=== PATIENT | male | born 1985 | race African-American/Black ===

== ENCOUNTER 2016-07-20 13:22 | Inpatient (IN) | payer OTHER ==
[~2016-07-20] VITALS: Ht 160 cm; Wt 90.7 kg
[2016-07-20] MEDS ORDERED: DiphenhydrAMINE 50mg/ml Inj IVP ONE (13:30)
[2016-07-20] MEDS ORDERED: LORazepam Inj 2mg/ml 1ml IV ONE ×2 (13:30→16:00)
--- NOTE | 2016-07-20 13:34 | Emergency Room Report ---
History of Present Illness General Chief Complaint: Substance Abuse Source: EMS (Deshawn Ardon M.D.) Present Illness HPI Patient presents with twitching out of control. He told EMS that he is been doing methamphetamine for several days. He denies any other medical problems at this time. EMS checked a blood sugar that was 311 in the field. The patient is unable to give history as he is confused. (Deshawn Ardon M.D.) Allergies: Coded Allergies: UNABLE TO ASSESS (Unverified , 07/20/16) pt ams Patient History Limited by: medical condition Past Medical History: see triage record Social History: Reports: drug use - Methamphetamine Social History Narrative from home Reviewed Nursing Documentation: PMH: Agreed, PSxH: Agreed (Deshawn Ardon M.D.) Nursing Documentation-PM Past Medical History: No History, Except For History Of Psychiatric Problem: Yes - meth abuse (Deshawn Ardon M.D.) Review of Systems All Other Systems: limited (Deshawn Ardon M.D.) Physical Exam Vital Signs Date Time Temp Pulse Resp B/P Pulse Ox O2 Delivery O2 Flow Rate FiO2 07/20/16 13:22 82 18 184/142 98 Room Air Eyes: bilateral eye PERRL, bilateral eye Scleral Injection, bilateral eye other - exopthalmos ENT: moist mucus membranes Neck: supple, no meningismus Respiratory: lungs clear, normal breath sounds Cardiovascular #1: no edema, no murmur, tachycardia Cardiovascular #2: 2+ radial (L) Gastrointestinal: abnormal bowel sounds - decreased, scaphoid Musculoskeletal: digits/nails normal, normal range of motion Neurologic: alert - not answer orientation, motor strength/tone normal, other - possibly involuntary muscle movements - choreoform Psychiatric: other - confused Skin: normal inspection, normal color, no rash, warm/dry (Deshawn Ardon M.D.) Medical Decision Making Diagnostic Impression: Primary Impression: Substance abuse Additional Impressions: Hypotension Qualified Codes: I95.9 - Hypotension, unspecified Altered mental status Qualified Codes: R41.82 - Altered mental status, unspecified Pneumonia Qualified Codes: J18.9 - Pneumonia, unspecified organism Leukocytosis Qualified Codes: D72.829 - Elevated white blood cell count, unspecified Rhabdomyolysis Qualified Codes: M62.82 - Rhabdomyolysis ER Course The patient presents with uncontrolled motor movements after several days of use of amphetamine (Crystal). Broad differential. The fact his blood sugar was 311 the field is disconcerting. This will be repeated here. IV will be started and hydration. Patient will be given Ativan and Benadryl. The patient is complex and confused. Non-focal neurologic exam. Accu-Chek here was 85. Labs pending. Somewhat improved after ativan and benadryl. Patient signed out to Dr. Renee. (Deshawn Ardon M.D.) ER Course Endorsed by Dr Ardon at 3pm to followup evaluation and managment of patient with suspected meth overdose. Patient still agitated. Required increasing doses of ativan for sedation and IVF NS hydration for hypotension 31 YO M with AMS, + for meth abuse on Utox with uncontrolled extremity movements and hypotension. Labs: Mild lueks and elevated CK. No DALE CXR: ?right middle lobe infiltrate Given IVF NS, IV Levo Dx: Meth overdose, Rhabdo, PNA, hypotension Admitted to Tele to Dr Lehman at 514pm (SIDDHARTHA RENEE M.D.) EKG Diagnostic Results Rate: normal Rhythm: NSR ST Segments: no acute changes (Deshawn Ardon M.D.) Rate: normal Rhythm: NSR ST Segments: no acute changes (SIDDHARTHA RENEE M.D.) Rhythm Strip Diag. Results EP Interpretation: yes Rhythm: NSR, no PVC's, no ectopy (Deshawn Ardon M.D.) EP Interpretation: yes Rate: 101 Rhythm: NSR, no PVC's, no ectopy (SIDDHARTHA RENEE M.D.) Chest X-Ray Diagnostic Results EP Interpretation: Yes Findings: no effusion, no pneumothorax, no acute cardiopulmonary disease, other - Right middle lobe infilitate Number of Views: 1 (SIDDHARTHA RENEE M.D.) Status: improved (Deshawn Ardon M.D.) Status: improved (SIDDHARTHA RENEE M.D.) Disposition: ADMITTED INPATIENT Condition: Serious Deshawn Ardon M.D. Jul 20, 2016 13:34 SIDDHARTHA RENEE M.D. Jul 20, 2016 15:52
[2016-07-20 14:05] VITALS: BP 167/90
[2016-07-20 14:22] LABS: BASOPHILS % (AUTO) 2.6 % (0.0-2.0); EOSINOPHILS % (AUTO) 0.1 % (0.0-3.0); LYMPHOCYTES % (AUTO) 25.4 % (20.0-45.0); MEAN CORPUSCULAR HEMOGLOBIN 30.1 PG (27.0-31.0); MEAN CORPUSCULAR HGB CONC 33.4 G/DL (32.0-36.0); MEAN CORPUSCULAR VOLUME 90 FL (80-99); MONOCYTES % (AUTO) 13.6 % (1.0-10.0); NEUTROPHILS % (AUTO) 58.3 % (45.0-75.0); PLATELET COUNT 235 K/UL (150-450); RED BLOOD COUNT 5.59 M/UL (4.70-6.10); RED CELL DISTRIBUTION WIDTH 11.7 % (11.6-14.8); WHITE BLOOD COUNT 12.2 K/UL (4.8-10.8)
[2016-07-20 14:34] LABS: ACETAMINOPHEN < 10 ug/mL (10-30); ALANINE AMINOTRANSFERASE 15 U/L (3-41); ALBUMIN/GLOBULIN RATIO 1.4 (1.0-2.7); ALCOHOL < 10 mg/dL; ANION GAP 20 (5-15); ASPARTATE AMINO TRANSFERASE 26 U/L (5-40); CALCIUM 9.4 mg/dL (8.6-10.2); CARBON DIOXIDE 23 mEQ/L (20-30); CHLORIDE 95 mEQ/L (98-107); GLOMERULAR FILTRATION RATE > 60 mL/min (>60); HEMOLYSIS 15; POTASSIUM 3.2 mEQ/L (3.4-4.9); SODIUM 138 mEQ/L (135-145); TOTAL PROTEIN 7.7 g/dL (6.6-8.7)
[2016-07-20 14:47] LABS: BILIRUBIN,DIRECT 0.2 mg/dL (0.1-0.3)
[2016-07-20 15:10] LABS: APPEARANCE,URINE CLEAR; KETONES,URINE 4+ (NEGATIVE); LEUKOCYTE ESTERASE ,URINE 2+ (NEGATIVE); NITRITE,URINE NEGATIVE (NEGATIVE); PH,URINE 6.5 (4.5-8.0); PROTEIN,URINE 1+ (NEGATIVE); UROBILINOGEN,URINE 1 MG/DL (0.0-1.0)
[2016-07-20 15:39] LABS: RBC,URINE 0-2 /HPF (0 - 0)
[2016-07-20 15:40] LABS: BACTERIA,URINE FEW /HPF
[2016-07-20 15:43] VITALS: BP 125/77
[2016-07-20 17:21] VITALS: BP 106/62
--- NOTE | 2016-07-20 19:23 | History and Physical ---
History of Present Illness General Date patient seen: Jul 20, 2016 Reason for Hospitalization: Substance Abuse Present Illness HPI 31 year old male presented by paramedics because of twitching out muscles. He told EMS that he is been doing methamphetamine for several days. He denies any other medical problems at this time. EMS checked a blood sugar that was 311 in the field. He was confused and combative in ER. and admitted for drug overdose and acute encephalopathy. Allergies: Coded Allergies: No Known Allergies (Unverified , 07/21/16) Patient History Healthcare decision maker Resuscitation status Advanced Directive on File Past Medical/Surgical History Past Medical/Surgical History: (1) Substance abuse Review of Systems Constitutional: Reports: no symptoms Eye: Reports: no symptoms Respiratory: Reports: no symptoms Cardiovascular: Reports: no symptoms Gastrointestinal: Reports: no symptoms Genitourinary: Reports: no symptoms Physical Exam General Appearance: WD/WN, alert Lines, tubes and drains: peripheral, central line HEENT: normocephalic, atraumatic Respiratory/Chest: chest wall non-tender, lungs clear Cardiovascular/Chest: normal peripheral pulses, normal rate Last 24 Hour Vital Signs Date Time Temp Pulse Resp B/P Pulse Ox O2 Delivery O2 Flow Rate FiO2 07/20/16 17:49 98.9 85 15 102/60 100 Room Air 07/20/16 17:21 98.9 98 24 106/62 100 Room Air 07/20/16 15:43 99.0 89 24 125/77 100 Room Air 07/20/16 14:05 98 22 167/90 100 Room Air 07/20/16 13:22 82 18 184/142 98 Room Air Laboratory Tests Test 07/20/16 14:07 07/20/16 14:23 White Blood Count 12.2 K/UL (4.8-10.8) H Red Blood Count 5.59 M/UL (4.70-6.10) Hemoglobin 16.8 G/DL (14.2-18.0) Hematocrit 50.4 % (42.0-52.0) Mean Corpuscular Volume 90 FL (80-99) Mean Corpuscular Hemoglobin 30.1 PG (27.0-31.0) Mean Corpuscular Hemoglobin Concent 33.4 G/DL (32.0-36.0) Red Cell Distribution Width 11.7 % (11.6-14.8) Platelet Count 235 K/UL (150-450) Mean Platelet Volume 7.0 FL (6.5-10.1) Neutrophils (%) (Auto) 58.3 % (45.0-75.0) Lymphocytes (%) (Auto) 25.4 % (20.0-45.0) Monocytes (%) (Auto) 13.6 % (1.0-10.0) H Eosinophils (%) (Auto) 0.1 % (0.0-3.0) Basophils (%) (Auto) 2.6 % (0.0-2.0) H Sodium Level 138 mEQ/L (135-145) Potassium Level 3.2 mEQ/L (3.4-4.9) L Chloride Level 95 mEQ/L (98-107) L Carbon Dioxide Level 23 mEQ/L (20-30) Anion Gap 20 (5-15) H Blood Urea Nitrogen 18 mg/dL (7-23) Creatinine 1.0 mg/dL (0.7-1.2) Estimat Glomerular Filtration Rate > 60 mL/min (>60) Glucose Level 96 mg/dL (74-106) Calcium Level 9.4 mg/dL (8.6-10.2) Total Bilirubin 1.1 mg/dL (0.0-1.2) Direct Bilirubin 0.2 mg/dL (0.1-0.3) Aspartate Amino Transf (AST/SGOT) 26 U/L (5-40) Alanine Aminotransferase (ALT/SGPT) 15 U/L (3-41) Alkaline Phosphatase 65 U/L (40-129) Total Creatine Kinase 441 U/L (38-174) H Total Protein 7.7 g/dL (6.6-8.7) Albumin 4.6 g/dL (3.5-5.2) Globulin 3.1 g/dL Albumin/Globulin Ratio 1.4 (1.0-2.7) Salicylates Level < 1 mg/dL (10-30) L Acetaminophen Level < 10 ug/mL (10-30) L Serum Alcohol < 10 mg/dL Urine Color Yellow Urine Appearance Clear Urine pH 6.5 (4.5-8.0) Urine Specific [place] 1.015 (1.005-1.035) Urine Protein 1+ (NEGATIVE) H Urine Glucose (UA) Negative (NEGATIVE) Urine Ketones 4+ (NEGATIVE) H Urine Occult Blood Negative (NEGATIVE) Urine Nitrite Negative (NEGATIVE) Urine Bilirubin Negative (NEGATIVE) Urine Urobilinogen 1 MG/DL (0.0-1.0) H Urine Leukocyte Esterase 2+ (NEGATIVE) H Urine RBC 0-2 /HPF (0 - 0) H Urine WBC 2-4 /HPF (0 - 0) Urine Squamous Epithelial Cells None /LPF (NONE/OCC) Urine Bacteria Few /HPF (NONE) Urine Opiates Screen Negative (NEGATIVE) Urine Barbiturates Screen Negative (NEGATIVE) Phencyclidine (PCP) Screen Negative (NEGATIVE) Urine Amphetamines Screen Positive (NEGATIVE) H Urine Benzodiazepines Screen Negative (NEGATIVE) Urine Cocaine Screen Negative (NEGATIVE) Urine Marijuana (THC) Screen Negative (NEGATIVE) Height (Feet): 5 Height (Inches): 10.00 Weight (Pounds): 200 Medications Current Medications Medications (Trade) Dose Ordered Sig/Vy Route PRN Reason Start Time Stop Time Status Last Admin Dose Admin Sodium Chloride (Sodium Chloride 1000ml bag) 1,000 ml @ 300 mls/hr Q3H20M IV 07/20/16 13:30 08/19/16 13:29 07/20/16 15:47 Assessment/Plan Problem List: (1) Substance abuse ICD Codes: F19.10 - Other psychoactive substance abuse, uncomplicated SNOMED: 69170728 (2) Rhabdomyolysis ICD Codes: M62.82 - Rhabdomyolysis SNOMED: 968620202, 597126342 Qualifiers: Qualified Codes: M62.82 - Rhabdomyolysis (3) Altered mental status ICD Codes: R41.82 - Altered mental status, unspecified SNOMED: 162681278 Qualifiers: Qualified Codes: R41.82 - Altered mental status, unspecified Assessment/Plan IV fluids check electrolytes neuro evaluation BETY KAMINSKI Jul 20, 2016 19:23
[2016-07-20] MEDS ORDERED: chlordiazePOXIDE 25mg Cap ORAL PRN (19:30)
[2016-07-20] MEDS ORDERED: Miralax 17gm pkt ORAL PRN (19:30)
[2016-07-20] MEDS ORDERED: LORazepam Inj 2mg/ml 1ml IV PRN (19:30)
[2016-07-20] MEDS ORDERED: Morphine Sulfate 2mg/ml Inj IVP PRN (19:30)
[2016-07-20] MEDS ORDERED: Mylanta II UD 30ml ORAL PRN (19:30)
[2016-07-20] MEDS ORDERED: Zolpidem 5mg tab ORAL PRN (19:30)
[2016-07-20 19:36] VITALS: BP 109/71
[2016-07-20] MEDS: Heparin 5000 units/ml inj SUBQ SCH (21:48)
[2016-07-20] MEDS ORDERED: Thiamine 100mg in D5W 55ml IVPB SCH (22:00)
[2016-07-20] MEDS ORDERED: Folic Acid 1 MG, Magnesium Sulfate 2,000 MG, Multivitamin - 12 Injection 10 ML in NS w/... IV SCH (22:00)
[2016-07-21 00:05] VITALS: BP 108/62
[2016-07-21 04:16] VITALS: BP 137/96
[2016-07-21 07:40] LABS: BASOPHILS % (AUTO) 2.9 % (0.0-2.0); EOSINOPHILS % (AUTO) 0.6 % (0.0-3.0); LYMPHOCYTES % (AUTO) 23.5 % (20.0-45.0); MEAN CORPUSCULAR HEMOGLOBIN 29.7 PG (27.0-31.0); MEAN CORPUSCULAR HGB CONC 33.1 G/DL (32.0-36.0); MEAN CORPUSCULAR VOLUME 90 FL (80-99); MONOCYTES % (AUTO) 14.1 % (1.0-10.0); NEUTROPHILS % (AUTO) 58.9 % (45.0-75.0); PLATELET COUNT 162 K/UL (150-450); RED BLOOD COUNT 5.13 M/UL (4.70-6.10); RED CELL DISTRIBUTION WIDTH 11.6 % (11.6-14.8); WHITE BLOOD COUNT 7.4 K/UL (4.8-10.8)
[2016-07-21 07:54] LABS: ALANINE AMINOTRANSFERASE 16 U/L (3-41); ALBUMIN/GLOBULIN RATIO 1.4 (1.0-2.7); ANION GAP 14 (5-15); ASPARTATE AMINO TRANSFERASE 24 U/L (5-40); CALCIUM 8.7 mg/dL (8.6-10.2); CARBON DIOXIDE 24 mEQ/L (20-30); CHLORIDE 102 mEQ/L (98-107); CREATININE 0.8 mg/dL (0.7-1.2); GLOMERULAR FILTRATION RATE > 60 mL/min (>60); HEMOLYSIS 13; POTASSIUM 4.3 mEQ/L (3.4-4.9); SODIUM 140 mEQ/L (135-145); TOTAL PROTEIN 6.8 g/dL (6.6-8.7)
[2016-07-21 08:00] VITALS: BP 131/99
[2016-07-21] MEDS ORDERED: Influenza Virus Vaccine 0.5ml IM ONE (09:00)
[2016-07-21] MEDS: Heparin 5000 units/ml inj SUBQ SCH ×2 (09:35→21:42)
--- NOTE | 2016-07-21 10:38 | Diagnostic Imaging Report ---
Indication: SOB Technique: One view of the chest Comparison: none Findings: Inspiration is suboptimal and there is crowding of the vascular markings. No definite acute infiltrates, effusions, or congestion. Heart size is upper limits of normal Impression: Hypoventilatory exam. No definite acute process
[2016-07-21 11:17] VITALS: BP 127/90
--- NOTE | 2016-07-21 12:06 | Neurology Progress Note ---
Objective Physical Exam Last Vital Signs Date Time Temp Pulse Resp B/P Pulse Ox O2 Delivery O2 Flow Rate FiO2 07/21/16 11:17 98.2 91 22 127/90 99 Room Air Laboratory Tests Test 07/20/16 14:07 07/20/16 14:23 07/21/16 06:30 White Blood Count 12.2 K/UL (4.8-10.8) H 7.4 K/UL (4.8-10.8) Red Blood Count 5.59 M/UL (4.70-6.10) 5.13 M/UL (4.70-6.10) Hemoglobin 16.8 G/DL (14.2-18.0) 15.2 G/DL (14.2-18.0) Hematocrit 50.4 % (42.0-52.0) 46.0 % (42.0-52.0) Mean Corpuscular Volume 90 FL (80-99) 90 FL (80-99) Mean Corpuscular Hemoglobin 30.1 PG (27.0-31.0) 29.7 PG (27.0-31.0) Mean Corpuscular Hemoglobin Concent 33.4 G/DL (32.0-36.0) 33.1 G/DL (32.0-36.0) Red Cell Distribution Width 11.7 % (11.6-14.8) 11.6 % (11.6-14.8) Platelet Count 235 K/UL (150-450) 162 K/UL (150-450) Mean Platelet Volume 7.0 FL (6.5-10.1) 7.0 FL (6.5-10.1) Neutrophils (%) (Auto) 58.3 % (45.0-75.0) 58.9 % (45.0-75.0) Lymphocytes (%) (Auto) 25.4 % (20.0-45.0) 23.5 % (20.0-45.0) Monocytes (%) (Auto) 13.6 % (1.0-10.0) H 14.1 % (1.0-10.0) H Eosinophils (%) (Auto) 0.1 % (0.0-3.0) 0.6 % (0.0-3.0) Basophils (%) (Auto) 2.6 % (0.0-2.0) H 2.9 % (0.0-2.0) H Sodium Level 138 mEQ/L (135-145) 140 mEQ/L (135-145) Potassium Level 3.2 mEQ/L (3.4-4.9) L 4.3 mEQ/L (3.4-4.9) Chloride Level 95 mEQ/L (98-107) L 102 mEQ/L (98-107) Carbon Dioxide Level 23 mEQ/L (20-30) 24 mEQ/L (20-30) Anion Gap 20 (5-15) H 14 (5-15) Blood Urea Nitrogen 18 mg/dL (7-23) 13 mg/dL (7-23) Creatinine 1.0 mg/dL (0.7-1.2) 0.8 mg/dL (0.7-1.2) Estimat Glomerular Filtration Rate > 60 mL/min (>60) > 60 mL/min (>60) Glucose Level 96 mg/dL (74-106) 94 mg/dL (74-106) Calcium Level 9.4 mg/dL (8.6-10.2) 8.7 mg/dL (8.6-10.2) Total Bilirubin 1.1 mg/dL (0.0-1.2) 1.0 mg/dL (0.0-1.2) Direct Bilirubin 0.2 mg/dL (0.1-0.3) Aspartate Amino Transf (AST/SGOT) 26 U/L (5-40) 24 U/L (5-40) Alanine Aminotransferase (ALT/SGPT) 15 U/L (3-41) 16 U/L (3-41) Alkaline Phosphatase 65 U/L (40-129) 60 U/L (40-129) Total Creatine Kinase 441 U/L (38-174) H Total Protein 7.7 g/dL (6.6-8.7) 6.8 g/dL (6.6-8.7) Albumin 4.6 g/dL (3.5-5.2) 4.0 g/dL (3.5-5.2) Globulin 3.1 g/dL 2.8 g/dL Albumin/Globulin Ratio 1.4 (1.0-2.7) 1.4 (1.0-2.7) Salicylates Level < 1 mg/dL (10-30) L Acetaminophen Level < 10 ug/mL (10-30) L Serum Alcohol < 10 mg/dL Urine Color Yellow Urine Appearance Clear Urine pH 6.5 (4.5-8.0) Urine Specific [place] 1.015 (1.005-1.035) Urine Protein 1+ (NEGATIVE) H Urine Glucose (UA) Negative (NEGATIVE) Urine Ketones 4+ (NEGATIVE) H Urine Occult Blood Negative (NEGATIVE) Urine Nitrite Negative (NEGATIVE) Urine Bilirubin Negative (NEGATIVE) Urine Urobilinogen 1 MG/DL (0.0-1.0) H Urine Leukocyte Esterase 2+ (NEGATIVE) H Urine RBC 0-2 /HPF (0 - 0) H Urine WBC 2-4 /HPF (0 - 0) Urine Squamous Epithelial Cells None /LPF (NONE/OCC) Urine Bacteria Few /HPF (NONE) Urine Opiates Screen Negative (NEGATIVE) Urine Barbiturates Screen Negative (NEGATIVE) Phencyclidine (PCP) Screen Negative (NEGATIVE) Urine Amphetamines Screen Positive (NEGATIVE) H Urine Benzodiazepines Screen Negative (NEGATIVE) Urine Cocaine Screen Negative (NEGATIVE) Urine Marijuana (THC) Screen Negative (NEGATIVE) Impression/Recommendations Recommendations dictated #[id number] VIKRAM LEE Jul 21, 2016 12:06
[2016-07-21] MEDS ORDERED: Haloperidol 5mg/ml Inj IM ONE (13:00)
--- NOTE | 2016-07-21 15:27 | Pulmonology Progress Note ---
Assessment/Plan Problems: (1) Substance abuse (2) Rhabdomyolysis (3) Altered mental status Assessment/Plan still somnolent very combative when awake seen by neuro Subjective ROS Limited/Unobtainable: No Constitutional: Reports: no symptoms HEENT: Repors: no symptoms Respiratory: Reports: no symptoms Cardiovascular: Reports: no symptoms Gastrointestinal/Abdominal: Reports: no symptoms Genitourinary: Reports: no symptoms Allergies: Coded Allergies: No Known Allergies (Unverified , 07/21/16) Objective Last 24 Hour Vital Signs Date Time Temp Pulse Resp B/P Pulse Ox O2 Delivery O2 Flow Rate FiO2 07/21/16 11:17 98.2 91 22 127/90 99 Room Air 07/21/16 08:00 97.9 93 20 131/99 98 Room Air 07/21/16 04:16 98.4 94 20 137/96 97 Room Air 07/21/16 04:00 69 07/21/16 00:05 98.7 74 21 108/62 96 Room Air 07/21/16 00:00 92 07/20/16 20:00 93 07/20/16 19:36 75 18 109/71 99 Room Air 07/20/16 17:49 98.9 85 15 102/60 100 Room Air 07/20/16 17:21 98.9 98 24 106/62 100 Room Air 07/20/16 15:43 99.0 89 24 125/77 100 Room Air Intake and Output 07/20/16 07/21/16 19:00 07:00 Intake Total 3150 ml 1293.98 ml Output Total 20 ml 950 ml Balance 3130 ml 343.98 ml Intake Oral 240 ml IV Total 3150 ml 1053.98 ml Output Urine Total 20 ml 950 ml # Voids 4 # Bowel Movements 1 General Appearance: WD/WN HEENT: normocephalic, atraumatic Respiratory/Chest: chest wall non-tender, lungs clear Cardiovascular: normal peripheral pulses, normal rate Abdomen: normal bowel sounds, soft, non tender Extremities: no cyanosis Laboratory Tests 07/21/16 06:30: White Blood Count 7.4, Red Blood Count 5.13, Hemoglobin 15.2, Hematocrit 46.0, Mean Corpuscular Volume 90, Mean Corpuscular Hemoglobin 29.7, Mean Corpuscular Hemoglobin Concent 33.1, Red Cell Distribution Width 11.6, Platelet Count 162, Mean Platelet Volume 7.0, Neutrophils (%) (Auto) 58.9, Lymphocytes (%) (Auto) 23.5, Monocytes (%) (Auto) 14.1H, Eosinophils (%) (Auto) 0.6, Basophils (%) ( Auto) 2.9H, Sodium Level 140, Potassium Level 4.3, Chloride Level 102, Carbon Dioxide Level 24, Anion Gap 14, Blood Urea Nitrogen 13, Creatinine 0.8, Estimat Glomerular Filtration Rate > 60, Glucose Level 94, Calcium Level 8.7, Total Bilirubin 1.0, Aspartate Amino Transf (AST/SGOT) 24, Alanine Aminotransferase ( ALT/SGPT) 16, Alkaline Phosphatase 60, Total Protein 6.8, Albumin 4.0, Globulin 2.8, Albumin/Globulin Ratio 1.4 Current Medications Medications (Trade) Dose Ordered Sig/Vy Route PRN Reason Start Time Stop Time Status Last Admin Dose Admin Acetaminophen (Tylenol) 650 mg Q4H PRN ORAL fever 07/20/16 19:30 08/19/16 19:29 Al Hydroxide/Mg Hydroxide (Mylanta II) 30 ml Q6H PRN ORAL dyspepsia 07/20/16 19:30 08/19/16 19:29 Chlordiazepoxide 25 mg 25 mg Q6H PRN ORAL Agitation 07/20/16 19:30 07/27/16 19:29 07/21/16 09:29 Dextrose STAT PRN IV Hypoglycemia 07/20/16 19:30 08/19/16 19:29 Folic Acid/ Magnesium Sulfate/ Multivitamins/ Sodium Chloride (Folvite/ Magnesium Sulfate/ M.v.i.-12/NS w/ KCl 20mEq) 1,014.2 ml @ 124.876 mls/hr Q24H IV 07/20/16 22:00 08/19/16 21:59 07/20/16 22:10 Heparin Sodium (Porcine) (Heparin 5000 units/ml) 5,000 units EVERY 12 HOURS SUBQ 07/20/16 21:00 08/19/16 20:59 07/21/16 09:35 Lorazepam (Ativan 2mg/ml 1ml) 2 mg Q1H PRN IV seizures 07/20/16 19:30 07/27/16 19:29 Morphine Sulfate (Morphine Sulfate) 1 mg Q4H PRN IVP For Pain 07/20/16 19:30 07/27/16 19:29 Ondansetron HCl (Zofran) 4 mg Q6H PRN IVP Nausea & Vomiting 07/20/16 19:30 08/19/16 19:29 Polyethylene Glycol (Miralax) 17 gm HSPRN PRN ORAL Constipation 07/20/16 19:30 08/19/16 19:29 Thiamine HCl/ Dextrose (Vitamin B1/D5W) 56 ml @ 112 mls/hr Q24H IVPB 07/20/16 22:00 08/19/16 21:59 07/20/16 22:10 Zolpidem Tartrate (Ambien) 5 mg HSPRN PRN ORAL Insomnia 07/20/16 19:30 08/19/16 19:29 BETY KAMINSKI Jul 21, 2016 15:27
--- NOTE | 2016-07-21 19:27 | Consultation ---
DATE OF CONSULTATION: 07/21/2016 NEUROLOGICAL CONSULTATION REQUESTING PHYSICIAN: Blanca Lehman M.D. HISTORY OF PRESENT ILLNESS: The patient is a 31-year-old man who is transient, now examined for assessment of changes in mental status. Currently according to the paramedics, they called to a [facility] center where the patient was described having four days of methamphetamine use. He was "twitching and moving a lot". He wanted to be checked out for twitching. His blood pressure was elevated and the blood pressure was up to 184/142, heart rate of 82, respiration 18, and blood sugar was 311. He denies chest pain, shortness of breath or any injuries. He was assisted to the hospital. On arrival, the patient presenting with a twitching out of control. He denied any other major medical problems. Lab work included a CBC study with WBC 12.2. Chemistry panel with potassium 3.2 and corrected level of 4.3. CPK of 441. Toxicology panel positive for amphetamine. Serum alcohol less than 10. The patient described as increasingly confused, disoriented, aggressive, hostile, refusing medication, and pulling out EKG leads. PAST MEDICAL HISTORY: The patient has substance abuse apparently he has alcohol abuse in the past and current methamphetamine abuse. Previously, he denies any medical issues. SOCIAL HISTORY: He is described as being homeless. FAMILY HISTORY: Unavailable. REVIEW OF SYSTEMS: Unable to obtain due to the patient's status was acutely psychotic. PHYSICAL EXAMINATION: GENERAL: The patient was found to be walking to the bathroom and back and pulling out EKG leads. His ambulation and movement arms and legs was appropriate. There were no paroxysmal events. No jerking or twitching noted. EXTREMITIES: Upper and lower extremities without clubbing, cyanosis, or edema. Peripheral pulses 1+. MENTAL STATUS: The patient is alert and oriented to his name and hospital, but would not provide with any further information, being very hostile and actually resisting to proper examination, threatening stating that he does not like when some becomes with a hammer. CRANIAL NERVE II: His cranial nerve limited exam revealed pupils are 3 mm responding to the light. Extraocular movement full range. CRANIAL NERVE V: Normal corneal responses. CRANIAL NERVE VII: No facial asymmetry. CRANIAL NERVE VIII: Grossly normal hearing. CRANIAL NERVES IX THROUGH XII: Not tested. MOTOR EXAMINATION: Appears normal tone and strength 5/5 in all extremities. No involuntary movement. Deep tendon reflexes not tested. SENSORY EXAM: Unable to test. Gait is stable. Movements of arms and legs appeared to be coordinated properly. IMPRESSION: 1. Acute methamphetamine intoxication with significant toxic encephalopathy and hypertension. 2. History of alcohol abuse. 3. Homeless. 4. Incomplete information. DISCUSSION: The patient acutely psychotic, hostile and presents a threat to personnel. The patient may need a chemical restraint sedation. We will request a psychiatry to address behavioral issues. If the patient agrees, he will be given Valium 10 mg b.i.d. p.o. to reduce any involuntary movement. The patient meanwhile will be observed for any paroxysmal events. If necessary, we will proceed with EEG and anticonvulsants, although at this time, there is no clear evidence of seizure disorder. Thank you for allowing me to see this interesting patient in neurological consultation. Jaswant Colon M.D. DR: RAJANI JOB#: [id number] CC:
[2016-07-21] MEDS ORDERED: Miralax 17gm pkt ORAL PRN (19:30)
[2016-07-21] MEDS ORDERED: Morphine Sulfate 2mg/ml Inj IVP PRN (19:30)
[2016-07-21] MEDS ORDERED: chlordiazePOXIDE 25mg Cap ORAL PRN (19:30)
[2016-07-21] MEDS ORDERED: Zolpidem 5mg tab ORAL PRN (19:30)
[2016-07-21] MEDS ORDERED: Mylanta II UD 30ml ORAL PRN (19:30)
[2016-07-21] MEDS ORDERED: LORazepam Inj 2mg/ml 1ml IV PRN (19:30)
[2016-07-21 20:00] VITALS: BP 106/73
[2016-07-21] MEDS: Thiamine HCl 100 MG in D5W 55 ML IVPB SCH (21:43)
[2016-07-21] MEDS: Folic Acid 1 MG, Magnesium Sulfate 2,000 MG, Multivitamin - 12 Injection 10 ML in NS w/... IV SCH (21:44)
[2016-07-22] VITALS: BP 92/58
[2016-07-22 04:00] VITALS: BP 100/64
[2016-07-22 07:44] LABS: BASOPHILS % (AUTO) 1.2 % (0.0-2.0); EOSINOPHILS % (AUTO) 1.9 % (0.0-3.0); LYMPHOCYTES % (AUTO) 30.3 % (20.0-45.0); MEAN CORPUSCULAR HEMOGLOBIN 29.6 PG (27.0-31.0); MEAN CORPUSCULAR HGB CONC 33.3 G/DL (32.0-36.0); MEAN CORPUSCULAR VOLUME 89 FL (80-99); MEAN PLATELET VOLUME 6.8 FL (6.5-10.1); MONOCYTES % (AUTO) 17.8 % (1.0-10.0); NEUTROPHILS % (AUTO) 48.8 % (45.0-75.0); PLATELET COUNT 163 K/UL (150-450); RED BLOOD COUNT 4.68 M/UL (4.70-6.10); RED CELL DISTRIBUTION WIDTH 11.8 % (11.6-14.8); WHITE BLOOD COUNT 6.6 K/UL (4.8-10.8)
[2016-07-22 08:06] LABS: ALANINE AMINOTRANSFERASE 13 U/L (3-41); ALBUMIN/GLOBULIN RATIO 1.5 (1.0-2.7); ANION GAP 12 (5-15); ASPARTATE AMINO TRANSFERASE 20 U/L (5-40); CALCIUM 8.6 mg/dL (8.6-10.2); CARBON DIOXIDE 25 mEQ/L (20-30); CHLORIDE 104 mEQ/L (98-107); CREATININE 0.9 mg/dL (0.7-1.2); CRP QUANT < 0.3 mg/dL (< 0.5); GLOMERULAR FILTRATION RATE > 60 mL/min (>60); HEMOLYSIS 5; MAGNESIUM 2.1 mg/dL (1.7-2.5); PHOSPHORUS 4.2 mg/dL (2.5-4.8); POTASSIUM 3.9 mEQ/L (3.4-4.9); SODIUM 141 mEQ/L (135-145); TOTAL PROTEIN 5.9 g/dL (6.6-8.7)
[2016-07-22 08:40] VITALS: BP 113/65
[2016-07-22] MEDS: Heparin 5000 units/ml inj SUBQ SCH ×3 (08:41→21:00)
[2016-07-22 09:18] LABS: ERYTHROCYTE SEDIMENTATION RATE 5 MM/HR (0-15)
[2016-07-22 13:01] VITALS: BP 95/52
[2016-07-22] MEDS ORDERED: Tubing IV Secondary IV ONE (17:02)
--- NOTE | 2016-07-22 17:22 | Pulmonology Progress Note ---
Assessment/Plan Problems: (1) Substance abuse (2) Rhabdomyolysis (3) Altered mental status Assessment/Plan awake, asymptoamtic wants to go home. Subjective ROS Limited/Unobtainable: No Constitutional: Reports: no symptoms HEENT: Repors: no symptoms Respiratory: Reports: no symptoms Cardiovascular: Reports: no symptoms Allergies: Coded Allergies: No Known Allergies (Unverified , 07/21/16) Objective Last 24 Hour Vital Signs Date Time Temp Pulse Resp B/P Pulse Ox O2 Delivery O2 Flow Rate FiO2 07/22/16 13:01 95/52 07/22/16 12:55 98.4 71 19 99 Room Air 07/22/16 08:40 97.0 78 20 113/65 96 Room Air 07/22/16 04:00 97.4 90 18 100/64 97 Room Air 07/22/16 00:00 97.7 92 18 92/58 97 Room Air 07/21/16 20:00 96.1 83 20 106/73 97 Room Air Intake and Output 07/21/16 07/22/16 19:00 07:00 Intake Total 484.38 ml 774.504 ml Balance 484.38 ml 774.504 ml Intake Oral 360 ml 275 ml IV Total 124.38 ml 499.504 ml # Voids 1 General Appearance: WD/WN HEENT: normocephalic Respiratory/Chest: chest wall non-tender, normal breath sounds Cardiovascular: normal peripheral pulses, regular rhythm Abdomen: normal bowel sounds, soft, non tender Laboratory Tests 07/22/16 05:25: White Blood Count 6.6, Red Blood Count 4.68L, Hemoglobin 13.9L, Hematocrit 41.6L , Mean Corpuscular Volume 89, Mean Corpuscular Hemoglobin 29.6, Mean Corpuscular Hemoglobin Concent 33.3, Red Cell Distribution Width 11.8, Platelet Count 163, Mean Platelet Volume 6.8, Neutrophils (%) (Auto) 48.8, Lymphocytes (% ) (Auto) 30.3, Monocytes (%) (Auto) 17.8H, Eosinophils (%) (Auto) 1.9, Basophils (%) (Auto) 1.2, Erythrocyte Sedimentation Rate 5, Sodium Level 141, Potassium Level 3.9, Chloride Level 104, Carbon Dioxide Level 25, Anion Gap 12, Blood Urea Nitrogen 11, Creatinine 0.9, Estimat Glomerular Filtration Rate > 60 , Glucose Level 94, Calcium Level 8.6, Phosphorus Level 4.2, Magnesium Level 2.1 , Total Bilirubin 0.6, Aspartate Amino Transf (AST/SGOT) 20, Alanine Aminotransferase (ALT/SGPT) 13, Alkaline Phosphatase 57, C-Reactive Protein, Quantitative < 0.3, Total Protein 5.9L, Albumin 3.6, Globulin 2.3, Albumin/ Globulin Ratio 1.5 Current Medications Medications (Trade) Dose Ordered Sig/Vy Route PRN Reason Start Time Stop Time Status Last Admin Dose Admin Acetaminophen (Tylenol) 650 mg Q4H PRN ORAL fever 07/21/16 19:30 08/20/16 19:29 Al Hydroxide/Mg Hydroxide (Mylanta II) 30 ml Q6H PRN ORAL dyspepsia 07/21/16 19:30 08/20/16 19:29 Chlordiazepoxide (Librium) 25 mg Q6H PRN ORAL Agitation 07/21/16 19:30 07/28/16 19:29 07/22/16 08:41 Dextrose (Dextrose 50%) STAT PRN IV Hypoglycemia 07/21/16 19:30 08/20/16 19:29 Folic Acid 1 mg/ Magnesium Sulfate 2000 mg/ Multivitamins 10 ml/Sodium Chloride 1,014.2 ml @ 124.876 mls/hr Q24H IV 07/21/16 22:00 08/20/16 21:59 07/21/16 21:44 Heparin Sodium (Porcine) (Heparin 5000 units/ml) 5,000 units EVERY 12 HOURS SUBQ 07/21/16 21:00 08/20/16 20:59 07/21/16 21:42 Lorazepam (Ativan 2mg/ml 1ml) 2 mg Q1H PRN IV seizures 07/21/16 19:30 07/28/16 19:29 Morphine Sulfate (Morphine Sulfate) 1 mg Q4H PRN IVP For Pain 07/21/16 19:30 07/28/16 19:29 Ondansetron HCl (Zofran) 4 mg Q6H PRN IVP Nausea & Vomiting 07/21/16 19:30 08/20/16 19:29 Polyethylene Glycol (Miralax) 17 gm HSPRN PRN ORAL Constipation 07/21/16 19:30 08/20/16 19:29 Thiamine HCl/ Dextrose (Vitamin B1/D5W) 56 ml @ 112 mls/hr Q24H IVPB 07/21/16 22:00 08/20/16 21:59 07/21/16 21:43 Zolpidem Tartrate (Ambien) 5 mg HSPRN PRN ORAL Insomnia 07/21/16 19:30 08/20/16 19:29 BETY KAMINSKI Jul 22, 2016 17:22
[2016-07-22 20:00] VITALS: BP 94/60
[2016-07-22] MEDS: Folic Acid 1 MG, Magnesium Sulfate 2,000 MG, Multivitamin - 12 Injection 10 ML in NS w/... IV SCH ×3 (22:00→22:39)
[2016-07-22] MEDS: Thiamine HCl 100 MG in D5W 55 ML IVPB SCH ×3 (22:00→22:39)
[2016-07-22 23:46] VITALS: BP 100/44
--- NOTE | 2016-07-23 01:07 | Consultation ---
DATE OF CONSULTATION: 07/22/2016 CONSULTING PHYSICIAN: Concepción Tafoya M.D. HISTORY OF PRESENT ILLNESS: This is a 31-year-old male with a history of methamphetamine abuse who has been admitted to the hospital status post overdose on methamphetamine. In the ER, the patient was combative and confused. Today, during evaluation, he is more alert, however, still has some cognitive impairment. He admitted that he has been using crystal meth for the past several days and it appears that he has been using excessive amount of methamphetamine and presented to the emergency room with overdose. He currently does not endorse any psychotic symptoms. No aggressive behaviors. No anxiety or agitation. He is requesting to be discharged home. PAST PSYCHIATRIC HISTORY: He denies any past psychiatric history. PAST MEDICAL HISTORY: Nonsignificant. ALLERGIES: There are no known drug allergies. SUBSTANCE ABUSE HISTORY: Significant for methamphetamine. MENTAL STATUS EXAMINATION: The patient is alert and oriented x3. Mood is neutral. Affect is constricted. Congruent mood. Thought process is concrete. Thought content, no suicidal or homicidal ideation. Cognition is improving. Insight and judgment are fair. ASSESSMENT: AXIS I: 1. Methamphetamine abuse. 2. Methamphetamine overdose. AXIS II: Deferred. AXIS III: Rhabdomyolysis. AXIS IV: Low. AXIS V: 55. PLAN: 1. We will not start the patient on any medications. Currently asymptomatic. The patient does not meet criteria for 5150 or psychiatric hospitalization. He may be discharged after he is medically cleared. 2. We will continue to follow. Concepción Tafoya M.D. DR: NAYA JOB#: [id number] CC:
[2016-07-23 04:00] VITALS: BP 96/54
[2016-07-23 08:32] VITALS: BP 106/70
[2016-07-23] MEDS: Heparin 5000 units/ml inj SUBQ SCH (09:00)
--- NOTE | 2016-07-23 20:54 | Discharge Summary ---
Discharge Summary Hospital Course Date of Admission Jul 20, 2016 at 16:43 Date of Discharge Jul 23, 2016 at 11:39 Admitting Diagnosis Meth overdose HPI Mikael Mora is a 31 year old male who was admitted on Jul 20, 2016 at 16:43 for Methoverdose Hospital Course [id number] Discharge Discharge Disposition Patient was discharged to [facility] Discharge Diagnoses: Monica Mclaughlin NP Jul 23, 2016 20:54
--- NOTE | 2016-07-24 02:28 | Discharge Summary 2 SIG ---
DATE OF ADMISSION: 07/20/2016 DATE OF DISCHARGE: 07/23/2016 CONSULTANTS: 1. Concepción Tafoya M.D. 2. Jaswant Colon M.D. BRIEF HOSPITAL COURSE: The patient is a 31-year-old male, who was brought in by paramedics because of twitching of muscles. He told EMS that he has been doing methamphetamine for several days. He denies any other medical problems. Blood sugar check was 311 in the field. He was confused and combative in ED and was admitted for drug overdose and acute encephalopathy. He was given IV fluids. Dr. Colon was consulted. The patient had acute psychosis and was given Valium. Psychiatric evaluation was also done. On the day of evaluation, the patient was more alert, however, still with some cognitive impairment. He did not endorse any psychotic symptoms. There was no aggressive behaviors. No anxiety or agitation. The patient did not meet criteria for 5150 or psychiatric hospitalization and the patient was medically cleared for discharge. FINAL DIAGNOSES: 1. Acute toxic encephalopathy. 2. Methamphetamine abuse. 3. Methamphetamine overdose. 4. Rhabdomyolysis. Blanca Lehman M.D. I have been assigned to dictate discharge summary on this account and I was not involved in the patient's management. Monica Mclaughlin N.P. DR: Kenzie JOB#: [id number] CC: DIANA
--- NOTE | 2016-08-23 08:38 | Cardiology Report ---
APPROVED REPORT EKG Measurement Heart [id number] Sinus rhythm with marked sinus arrhythmia Otherwise normal ECG
== END 2016-07-23 11:39 | disposition home or self-care (01) | DRG 812 ==
LOC: ENRESERVTM → ENRESERVDT → EDBD 13:22 → EMR 13:30 → EDBEDREQ 16:43 → 2E 16:43 → EDBEDREQ 17:11 → 2E 07-21 02:08 → 4W 07-21 19:24
DX: T43.621A Poisoning by amphetamines, accidental (unintentional), initial encounter (principal); G92 Toxic encephalopathy; M62.82 Rhabdomyolysis; I95.9 Hypotension, unspecified; F15.10 Other stimulant abuse, uncomplicated; Z59.0 Homelessness; I10 Essential (primary) hypertension; Y92.89 Other specified places as the place of occurrence of the external cause; Z23 Encounter for immunization
CPT/HCPCS: 36415; 71010; 80053; 80300; 80329; 81003; 82248; 82550; 82962; 83735; 84100; 85025; 85651; 86140; 93005; Q2036